=== PATIENT | male | born 1995 | race Caucasian/White ===

== ENCOUNTER 2018-07-24 16:07 | Emergency (ER) | payer BC ==
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
== END 2018-07-24 16:40 | disposition home or self-care (01) ==
LOC: CC.ED 16:07
DX: S80.812A Abrasion, left lower leg, initial encounter (principal); R42 Dizziness and giddiness; V87.8XXA Person injured in other specified noncollision transport accidents involving motor vehicle (traffic), initial encounter
CPT/HCPCS: 99283

== ENCOUNTER 2023-12-12 12:36 | Emergency (ER) | payer BC ==
[2023-12-12] MEDS: Diphtheria,Pertussis(Acell),Tetanus Vaccine 0.5 ML Syringe IM ONE (12:55)
[2023-12-12] MEDS: Lidocaine 1% with EPINEPHrine 1:100,000 10 ML MDV INJECT ONE (12:57)
[2023-12-12] MEDS: Bacitracin Oint 1 GM U/D Packet TOP ONE (12:57)
== END 2023-12-12 13:10 | disposition home or self-care (01) ==
LOC: CC.ED 12:36
DX: S81.011A Laceration without foreign body, right knee, initial encounter (principal); W26.0XXA Contact with knife, initial encounter
CPT/HCPCS: 12001; 90471; 90715; 99282-25; 99283; J3490